=== PATIENT | female | born 2000 | race Two or more races ===

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

== ENCOUNTER → 2021-07-25 | Outpatient (CLI) | payer OTHER ==
[~2021-07-25] MED LIST changes: +CEPH500T PO
--- NOTE | 2021-07-26 09:59 | RAD ---
US PELVIS COMPLETE History: Reason: MENORRHAGIA / Spl. Instructions: / History: Comparison: None Technique: Grayscale and color Doppler imaging of the pelvis was performed using transabdominal techn ique. Findings: The uterus measures 9.3 x 3.9 x 3.7 cm. Uterus has an unremarkable appearance. The endometrial stri pe measures 6 mm. Right ovary measures 2.5 x 2.0 x 1.5 cm. Left ovary measures 3.2 x 3.3 x 2.5 cm. Dominant left ovarian follicle measures 1.9 cm. Normal Doppler flow to the ovaries. No adnexal masses are seen. Minimal pelvic free fluid. IMPRESSION: 1. No acute pelvic pathology. 2. Minimal pelvic free fluid, likely physiologic. Electronically signed by: Sandeep Mccabe DO (07/26/2021 9:56 AM) [id number]
== END ==
LOC: US 15:32
PROVIDERS: ATTEND Nurse Practitioner Family
DX: N92.0 Excessive and frequent menstruation with regular cycle (principal)
CPT/HCPCS: 76856